=== PATIENT | male | born 1965 | race Caucasian/White ===

== ENCOUNTER 2017-07-20 16:43 | Emergency (ER) | payer OTHER ==
[~2017-07-20] VITALS: Ht 177.8 cm; Wt 75.7 kg
[2017-07-20] MEDS ORDERED: PRILOSEC10 MG (17:50)
[2017-07-20] MEDS ORDERED: PERCOCET 5-3251 EACH (17:50)
== END 2017-07-20 21:39 | disposition home or self-care (01) ==
LOC: ER 16:43
DX: R10.12 Left upper quadrant pain (principal)